=== PATIENT | male | born 1985 | race Caucasian/White ===

== ENCOUNTER 2022-06-17 20:12 | Observation (INO) ==
[2022-06-17] MEDS ORDERED: SODIUM CHLORIDE 0.9% 500 ML IV STA (20:26)
[2022-06-17 20:53] LABS: Basophils # (auto) 0.02 K/uL (0-0.2); Basophils % (auto) 0.2 %; Eosinophils # (auto) 0.08 K/uL (0-0.50); Hematocrit (blood only) 36.5 % (40.1-51.0); Hemoglobin 12.8 g/dl (14.0-18.0); Immature Granulocytes # (auto) 0.03 K/uL (0.00-0.02); Immature Granulocytes % (auto) 0.4 %; Lymphocytes # (auto) 1.48 K/uL (1.2-3.4); Lymphocytes % (auto) 17.8 %; Mean Corpuscular Hemoglobin 30.8 pg (25.0-34.0); Mean Corpuscular Hgb Conc 35.1 g/dL (32.0-36.0); Mean Corpuscular Volume 87.7 fL (80.0-100.0); Mean Platelet Volume 11.2 fL (9.4-12.4); Monocytes # (auto) 0.61 K/uL (0.24-0.82); Monocytes % (auto) 7.3 %; Neutrophils # (auto) 6.08 K/uL (1.4-6.5); Neutrophils % (auto) 73.3 %; Platelet Count 183 K/uL (130-400); RDW Standard Deviation 38.7 fL (36.4-46.3); Red Blood Count 4.16 M/uL (4.63-6.08)
[2022-06-17 21:17] LABS: Albumin Globulin Ratio 1.7 (0.9-2); Albumin Level 4.3 gm/dl (3.4-5.0); BUN Creatinine Ratio 7.9 (10-20); Bilirubin,Total 0.6 mg/dl (0.2-1.0); Calcium 9.1 mg/dl (8.5-10.1); Creatinine Clr Calc Pharmacy 76.6 ml/min; Est GFR (African American) 60.6 ml/min; Est GFR (Non-African American) 52.3 ml/min; Globulin 2.6 gm/dl (2.5-4.0); Potassium 4.2 mmol/L (3.5-5.1); Total Protein 6.9 gm/dl (6.0-8.3)
[2022-06-17] MEDS ORDERED: KETOROLAC 30 MG/ML VIAL IV STA (23:08)
[2022-06-17] MEDS ORDERED: ONDANSETRON INJ 2 MG/ML 2 ML VIAL IV STA (23:08)
[2022-06-17] MEDS ORDERED: MoRPHine SULFATE 4 MG/ML 1 ML CARP\\VIAL IV PRN (23:08)
[2022-06-17] MEDS ORDERED: cefTRIAXone SODIUM 2,000 MG/70 ML BAG IV STA (23:08)
[2022-06-17] MEDS ORDERED: SODIUM CHLORIDE 0.9% 1000ML 1,000 ML IV SCH (23:15)
--- NOTE | 2022-06-17 23:22 | Emergency Department Note ---
History of Present Illness General Chief complaint: Kidney Stone Stated complaint: FEVER, 4 MIL KIDNEY STONE, OXY AT 4:30PM PAIN IN B Time Seen by Provider: 06/17/22 23:06 History of Present Illness Maximum Pain Intensity: 3 This is a 37-year-old male presenting to the emergency department for evaluation of fever symptoms that began a few hours ago. The patient was seen and evaluated in this department yesterday for flank pain where he was diagnosed with a 4 mm distal ureteral kidney stone. The patient has been doing fairly well from a pain standpoint after being evaluated here in the ER, but with his fever elected to come to the ER. He states that his urine has been fairly clear and he is scheduled with urology tomorrow for recheck. He rates his current discomfort a 3/10. Home Medications Medication Instructions Recorded Confirmed Type acetaminophen 500 mg tablet 1,000 mg PO DIRECTED PRN Pain 06/16/22 06/17/22 History (Tylenol Extra Strength) ibuprofen 200 mg tablet 800 mg PO DIRECTED PRN Pain 06/16/22 06/17/22 History ondansetron 4 mg disintegrating 4 mg PO Q8H PRN nausea and 06/16/22 06/17/22 Rx tablet vomiting 5 days #15 tabs oxycodone 5 mg tablet 5 mg PO Q6H PRN pain #20 tabs 06/16/22 06/17/22 Rx tamsulosin 0.4 mg capsule (Flomax) 0.4 mg PO DAILY #10 caps 06/16/22 06/17/22 Rx Allergies Allergy/AdvReac Type Severity Reaction Status Date / Time No Known Allergies Allergy Verified 06/16/22 20:06 Past Med/Surg History Medical History Ureteral stone Surgical History No significant past surgical history Social History Smoking Status: Never smoker Hx Alcohol Use: Yes Alcohol type: beer and wine Hx Substance Use: Yes Last Used Substance Other:: quit smoking in 2018 Preferred Language: Jordanian Communication Ability: Effective Lap Winder Required: No Beliefs That Will Affect Care: None Current Living Situation: Spouse Other Information That Helps Us Care for You: No Feels Safe at Home: Yes Safety Concerns: Feels Safe At This Time Assistive Devices: None Review of Systems A total of 10 systems reviewed and were otherwise negative Physical Exam Vital Signs Vital Signs - 24 hr 06/17/22 20:21 06/17/22 22:33 06/17/22 23:54 Temperature 38.3 C H Temperature Source Temporal Artery Scan Pulse Rate 97 H Pulse Rate [Apical] 75 71 Pulse Rhythm [Apical] Regular Pulse Strength [Apical] Normal Respiratory Rate 20 15 18 Respiratory Effort / Characteristics Non-Labored Spontaneous Non-Labored Respiratory Depth Normal Normal Respiratory Pattern Regular Blood Pressure 189/97 H Blood Pressure [Left Arm] 143/91 H 163/92 H Blood Pressure Mean 127 Blood Pressure Mean [Left Arm] 108 115 Blood Pressure Position Sitting Blood Pressure Position [Left Arm] Sitting Pulse Oximetry 95 97 96 Oxygen Delivery Method Room Air Room Air Room Air Sepsis Recent Fever Within 48 Hours No Sepsis New/Unexplained Change in Mental Status N/A Sepsis Action Taken by Nursing No Action Required VITALS: Vitals are noted on the nurse's note and reviewed by myself. Vital signs with fever GENERAL: Well-developed, well-nourished, white male, who is in no acute distress and resting comfortably. Patient is cooperative with the examination. HEAD: Normocephalic atraumatic. HEART: Regular rate and rhythm without murmurs gallops or rubs. LUNGS: Clear to auscultation bilaterally without wheezes, rales or rhonchi. No retractions or accessory muscle use. ABDOMEN: Positive normal bowel sounds x 4. Soft, nontender, without masses or organomegaly. No guarding or rebound tenderness. No CVA tenderness. MUSCULOSKELETAL: No muscle atrophy, erythema, or edema noted. Full range of motion in all extremities. Course Administered Medications Sodium Chloride (Nss 1000ml) 1,000 mls @ 125 mls/hr IV .Q8H CATARINO Stop: 07/18/22 00:14 Last Admin: 06/18/22 01:47 Dose: 125 mls/hr Documented By: JS Discontinued Medications Sodium Chloride (Nss) 500 mls @ 999 mls/hr IV .Q31M STA Stop: 06/17/22 20:56 Last Infusion: 06/17/22 23:45 Dose: 0 mls/hr Documented By: Admin: 06/17/22 22:32 Dose: 999 mls/hr Documented By: ML Sodium Chloride (Nss 1000ml) 1,000 mls @ 999 mls/hr IV .Q1H1M CATARINO Stop: 06/18/22 00:15 Last Infusion: 06/18/22 00:50 Dose: 0 mls/hr Documented By: Admin: 06/17/22 23:48 Dose: 999 mls/hr Documented By: LRS Ceftriaxone Sodium (Rocephin) 2,000 mg in 70 mls @ 140 mls/hr IV NOW STA Stop: 06/17/22 23:37 Last Admin: 06/17/22 23:54 Dose: Not Given Documented By: LRS Piperacillin Sod/Tazobactam Sod (Zosyn) 4.5 gm in 120 mls @ 240 mls/hr IV NOW ONE Stop: 06/18/22 00:04 Last Infusion: 06/18/22 00:50 Dose: 0 mls/hr Documented By: Admin: 06/17/22 23:49 Dose: 240 mls/hr Documented By: MLS Ketorolac Tromethamine (Ketorolac 30 Mg/Ml Vial) 30 mg IV NOW STA Stop: 06/17/22 23:09 Last Admin: 06/17/22 23:49 Dose: 30 mg Documented By: MLS Ondansetron HCl (Ondansetron Inj 2 Mg/Ml 2 Ml Vial) 4 mg IV NOW STA Stop: 06/17/22 23:09 Last Admin: 06/17/22 23:49 Dose: 4 mg Documented By: LUIS Medical Decision Making Differential Diagnosis Differential diagnosis: Etiologies such as shingles, pyelonephritis/UTI, renal colic, appendicitis, diverticulitis, mesenteric ischemia, torsion, aortic pathology, infections, inflammatory bowel disease, bowel obstruction, PUD, biliary pathology, as well as others were entertained. Laboratory Data Result diagrams: 06/17/22 20:36 06/17/22 20:36 Lab Results 06/17/22 06/17/22 06/17/22 Range/Units 20:36 20:36 23:39 WBC 8.30 (4.8-10.8) K/ul RBC 4.16 L (4.63-6.08) M/uL Hgb 12.8 L (14.0-18.0) g/dl Hct 36.5 L (40.1-51.0) % MCV 87.7 (80.0-100.0) fL MCH 30.8 (25.0-34.0) pg MCHC 35.1 (32.0-36.0) g/dL RDW Std Deviation 38.7 (36.4-46.3) fL RDW Coeff of Krishna 12.0 (11.5-14.5) % Plt Count 183 (130-400) K/uL MPV 11.2 (9.4-12.4) fL Immature Gran % (Auto) 0.4 % Neut % (Auto) 73.3 % Lymph % (Auto) 17.8 % [place] % (Auto) 7.3 % Eos % (Auto) 1.0 % Baso % (Auto) 0.2 % Neut # (Auto) 6.08 (1.4-6.5) K/uL Lymph # (Auto) 1.48 (1.2-3.4) K/uL [place] # (Auto) 0.61 (0.24-0.82) K/uL Eos # (Auto) 0.08 (0-0.50) K/uL Baso # (Auto) 0.02 (0-0.2) K/uL Immature Gran # (Auto) 0.03 H (0.00-0.02) K/uL Sodium 137 (136-145) mmol/L Potassium 4.2 (3.5-5.1) mmol/L Chloride 104 (98-107) mmol/L Carbon Dioxide 28 (21-32) mmol/L Anion Gap 5 (3-11) BUN 13 (6-23) mg/dl Creatinine 1.64 H (0.6-1.4) mg/dl Est Cr Clr Drug Dosing 76.6 ml/min Est GFR ( Amer) 60.6 ml/min Est GFR (Non-Af Amer) 52.3 ml/min BUN/Creatinine Ratio 7.9 L (10-20) Glucose 94 (70-99(Fasting)) mg/dl Lactate (0.4-2.0) mmol/L Calcium 9.1 (8.5-10.1) mg/dl Total Bilirubin 0.6 (0.2-1.0) mg/dl AST 10 L (13-39) U/L ALT 11 (7-52) U/L Alkaline Phosphatase 42 (34-104) U/L Total Protein 6.9 (6.0-8.3) gm/dl Albumin 4.3 (3.4-5.0) gm/dl Globulin 2.6 (2.5-4.0) gm/dl Albumin/Globulin Ratio 1.7 (0.9-2) Urine Color Urine Appearance (Clear) Urine pH (4.5-7.5) Ur Specific [place] (1.000-1.030) Urine Protein (Negative) Urine Glucose (UA) (Negative) Urine Ketones (Negative) Urine Blood (Negative) Urine Nitrite (Negative) Urine Bilirubin (Negative) Urine Urobilinogen (Negative) Ur Leukocyte Esterase (Negative) SARS-CoV-2, RNA, NAAT NEGATIVE (NEGATIVE) 06/17/22 06/17/22 Range/Units 23:42 23:42 WBC (4.8-10.8) K/ul RBC (4.63-6.08) M/uL Hgb (14.0-18.0) g/dl Hct (40.1-51.0) % MCV (80.0-100.0) fL MCH (25.0-34.0) pg MCHC (32.0-36.0) g/dL RDW Std Deviation (36.4-46.3) fL RDW Coeff of Krishna (11.5-14.5) % Plt Count (130-400) K/uL MPV (9.4-12.4) fL Immature Gran % (Auto) % Neut % (Auto) % Lymph % (Auto) % [place] % (Auto) % Eos % (Auto) % Baso % (Auto) % Neut # (Auto) (1.4-6.5) K/uL Lymph # (Auto) (1.2-3.4) K/uL [place] # (Auto) (0.24-0.82) K/uL Eos # (Auto) (0-0.50) K/uL Baso # (Auto) (0-0.2) K/uL Immature Gran # (Auto) (0.00-0.02) K/uL Sodium (136-145) mmol/L Potassium (3.5-5.1) mmol/L Chloride (98-107) mmol/L Carbon Dioxide (21-32) mmol/L Anion Gap (3-11) BUN (6-23) mg/dl Creatinine (0.6-1.4) mg/dl Est Cr Clr Drug Dosing ml/min Est GFR ( Amer) ml/min Est GFR (Non-Af Amer) ml/min BUN/Creatinine Ratio (10-20) Glucose (70-99(Fasting)) mg/dl Lactate 0.5 (0.4-2.0) mmol/L Calcium (8.5-10.1) mg/dl Total Bilirubin (0.2-1.0) mg/dl AST (13-39) U/L ALT (7-52) U/L Alkaline Phosphatase (34-104) U/L Total Protein (6.0-8.3) gm/dl Albumin (3.4-5.0) gm/dl Globulin (2.5-4.0) gm/dl Albumin/Globulin Ratio (0.9-2) Urine Color Yellow Urine Appearance Clear (Clear) Urine pH 5.0 (4.5-7.5) Ur Specific [place] 1.006 (1.000-1.030) Urine Protein Negative (Negative) Urine Glucose (UA) Negative (Negative) Urine Ketones Negative (Negative) Urine Blood Negative (Negative) Urine Nitrite Negative (Negative) Urine Bilirubin Negative (Negative) Urine Urobilinogen Negative (Negative) Ur Leukocyte Esterase Negative (Negative) SARS-CoV-2, RNA, NAAT (NEGATIVE) MDM Narrative Physical exam and history were performed. Nursing notes, EMR, and Medication List were personally reviewed. Patient appears to have fever with acute onset in the context of having diagnosed kidney stone yesterday. IV access was established and labs were o btained. The patient was hydrated with normal saline. He was given IV Toradol, IV morphine, IV saline, and IV Zofran. He was given IV Rocephin and after discussion with Urology was given IV Zosyn. The patient's blood work is as above and was reviewed. He does not have a significantly elevated white blood cell count, gross anemia, bandemia, or significant electrolyte imbalance. Creatinine is slightly elevated from yesterday and is currently 1.64. Glucose is 94. Lactic acid is negative with cultures pending. Urine does have calcium oxalate crystals. COVID is negative. Out of concern for the patient's fever with known kidney stone I did reach out to the urology team who did evaluate the patient here in the ER. Please see their dictation for further patient course, plan, and disposition. The chart was completed utilizing [employer] Speech Voice Recognition Software. Grammatical errors, random word insertions, pronoun errors, and incomplete sentences are an occasional consequence of this system due to software limitations, ambient noise, and hardware issues. Any formal questions or concerns about the content, text, or information contained within the body of this dictation should be directly addressed to the provider for clarification. . Impression & Plan Calculus, ureteral, Fever Discharge Plan Visit Data Chief Complaint: Kidney Stone Stated Complaint: FEVER, 4 MIL KIDNEY STONE, OXY AT 4:30PM PAIN IN B ED Provider: Andrea Marques ED Midlevel Provider: Jun Pitts Discharge Problem: Calculus, ureteral, Fever Patient Disposition: Admitted As Inpatient Discharge Instructions Interventions: ED Discharge Assessment Last Done: 06/18/22 01:11
[2022-06-17] MEDS ORDERED: PIPERACILLIN/TAZOBACTAM 4.5 GM/120 ML BAG IV ONE (23:35)
[2022-06-17 23:55] LABS: Appearance Urine Clear (Clear); Bilirubin Urine Negative (Negative); Blood Urine Negative (Negative); Color Urine Yellow; Glucose Urine UA Negative (Negative); Ketones Urine Negative (Negative); Leukocyte Esterase Urine Negative (Negative); Nitrite Urine Negative (Negative); Protein Urine Negative (Negative); Specific Gravity Urine 1.006 (1.000-1.030); Urobilinogen Urine Negative (Negative)
--- NOTE | 2022-06-17 23:58 | History & Physical Report ---
Date of Service June 17, 2022 Assessment & Plan (1) Ureteral stone: Plan: Due to the imaging noted on 06/16/2022 along with the patient's fevers he will be admitted to the hospital proceeding as follows: Analgesics we provided Antiemetics will be provided We will continue Flomax 0.4 mg daily (the patient did take a dose already today) We will continue broad-spectrum antibiotics in form of Zosyn. Appropriate cultures have been sent and antibiotics to be tailored based on these culture results We will provide IV fluid for hydration I discussed the case with my attending physician Dr. Godinez. Although the patient does have a fever he is normotensive without tachycardia or leukocytosis. He also does not have evidence of UTI on urinalysis. We will therefore implement the above-noted measures to see if we can get the kidney stone to pass overnight. If the patient does, however, spiked a temperature greater than 38.5 consideration be given to taking patient for an urgent cystoscopy and possible ureteral stent. We will keep the patient n.p.o. as it is uncertain of whether or not the patient will require cystoscopy Additional recommendations be forthcoming based on his clinical course as it unfold Will use SCDs for DVT prevention no chemical means until it is ascertain whether or not patient will require any procedural intervention Patient be a level 1 full code History of Present Illness Chief Complaint: Nephrolithiasis Primary Care Provider: NO PCP This is a 37-year-old male who developed left-sided flank pain approximately 5 days ago. He said that the pain would radiate to his abdomen. He had associated nausea without vomiting. He said that the pain resolved after approximately 6 hours. He then notes approximately 4 days later that the pain recurred. With his symptoms he has had no dysuria but did report intermittent hematuria. Reported to the emergency department Secondary to his recurrent pain on 06/16/2022. During that admission he had a CBC her white blood cell count and platelet count were normal. Hemoglobin and hematocrit were noted to be 13.7 and 38.2. Chemistry profile showed sodium, potassium, and BUN within normal range. His creatinine was 1.54. (He did not have any pre-existing labs for comparison) urinalysis was not concerning for infection. He was discharged home with Flomax and analgesics. Patient represented to [facility] emergency department as he developed a fever at approximately 6:00 PM this evening. He denies any shakes or chills. The patient does note a past history of kidney stones approximate 26 years ago that passed spontaneously did not require intervention. Today in the emergency department the patient had labs again were white blood cell count and platelet count were normal. His hemoglobin and hematocrit were 12.8 and 36.5. Chemistry profile showed sodium and potassium were normal. His BUN was 13 and his creatinine was slightly elevated at 1.6. A urinalysis performed this evening was again negative for infection. A lactic acid level is pending and a COVID test is pending. Concerning past medical history the patient denies any prior medical problems other than previous kidney stones as mentioned Concerning past surgical history the patient had a hiatal hernia repair as a child and he also had a pilonidal cyst and tonsils and adenoids. Patient is a non-smoker He denies any family history of coronary artery disease Since arrival to the emergency department this evening the patient has had blood and urine cultures sent. He has received 1500 cc of normal saline solution and antibiotics in the form of Zosyn. At the time of my interview he was resting comfortably in bed in no distress. Allergies Allergy/AdvReac Type Severity Reaction Status Date / Time No Known Allergies Allergy Verified 06/16/22 20:06 Home Medications Medication Instructions Recorded Confirmed Type acetaminophen 500 mg tablet 1,000 mg PO DIRECTED PRN Pain 06/16/22 06/17/22 History (Tylenol Extra Strength) ibuprofen 200 mg tablet 800 mg PO DIRECTED PRN Pain 06/16/22 06/17/22 History ondansetron 4 mg disintegrating 4 mg PO Q8H PRN nausea and 06/16/22 06/17/22 Rx tablet vomiting 5 days #15 tabs oxycodone 5 mg tablet 5 mg PO Q6H PRN pain #20 tabs 06/16/22 06/17/22 Rx tamsulosin 0.4 mg capsule (Flomax) 0.4 mg PO DAILY #10 caps 06/16/22 06/17/22 Rx Past Med/Surg History Medical History Ureteral stone Surgical History No significant past surgical history Social History Smoking Status: Never smoker Preferred Language: Cambodian Feels Safe at Home: Yes Review of Systems Constitutional: + fever; no chills Eyes: no eye pain Ear, Nose, Mouth, Throat: no ear pain Respiratory: no cough Cardiovascular: no chest pain Gastrointestinal: + abdominal pain (Radiating from left flank) and + nausea; no vomiting Musculoskeletal: + back pain (Left flank) Integumentary: no rash Neurologic: no localized weakness Physical Exam Constitutional: WD/WN, vitals as above Eyes: no conjunctival abnormality ENMT: Ears: no hearing impairment and no external ear abnormality Mouth: no oropharynx abnormality Neck: trachea midline Respiratory: normal respiratory effort; no respiratory distress and no labored breathing Cardiovascular: Rate/Rhythm: regular rate and regular rhythm Vessels: aureliano salis pedis pulses present and radial pulses present Gastrointestinal (Abdomen): Soft, nonrigid, nondistended. There is no pain with palpation. There is no rebound tenderness or guarding Musculoskeletal: No calf tenderness Skin: no rashes Neurologic: moves all extremities Psychiatric: A+Ox3, euthymic affect Genitourinary: no CVA tenderness (No CVA tenderness noted the time of my exam) Results & Data Results & Data ([facility]) Vital Signs (Past 12 Hours) Vital Signs Temp Pulse Pulse Resp BP BP Pulse Ox 06/17/22 23:54 71 18 163/92 H 96 06/17/22 22:33 75 15 143/91 H 97 06/17/22 20:21 38.3 C H 97 H 20 189/97 H 95 O2 Del Method 06/17/22 23:54 Room Air 06/17/22 22:33 Room Air 06/17/22 20:21 Room Air PG Care Time/CCT Total # of Minutes Spent Total Time Spent with Patient: Total time spent is greater than 50% in coordination of care (as documented) at patient's floor/unit and/or counseling patient: Coding Level of Care Code 80687 Initial Inpt Care Lvl 3 Diagnoses Ureteral stone N20.1
[2022-06-18] MEDS ORDERED: ACETAMINOPHEN 1,000 MG/100 ML VIAL IV PRN (00:05)
[2022-06-18] MEDS ORDERED: MoRPHine SULFATE 4 MG/ML 1 ML CARP\\VIAL IV PRN (00:05)
[2022-06-18] MEDS ORDERED: ONDANSETRON INJ 2 MG/ML 2 ML VIAL IV PRN ×2 (00:05→10:42)
[2022-06-18] MEDS: SODIUM CHLORIDE 0.9% 1000ML 1,000 ML IV SCH ×3 (01:47→18:16)
[2022-06-18] MEDS: PIPERACILLIN/TAZOBACTAM 3.375 GM in DEXTROSE 5% 100 ML IV SCH ×3 (06:20→22:06)
[2022-06-18 06:34] LABS: Basophils # (auto) 0.04 K/uL (0-0.2); Basophils % (auto) 0.8 %; Eosinophils # (auto) 0.09 K/uL (0-0.50); Eosinophils % (auto) 1.7 %; Hematocrit (blood only) 31.3 % (40.1-51.0); Hemoglobin 11.1 g/dl (14.0-18.0); Immature Granulocytes # (auto) 0.02 K/uL (0.00-0.02); Immature Granulocytes % (auto) 0.4 %; Lymphocytes # (auto) 1.47 K/uL (1.2-3.4); Lymphocytes % (auto) 27.7 %; Mean Corpuscular Hemoglobin 31.6 pg (25.0-34.0); Mean Corpuscular Hgb Conc 35.5 g/dL (32.0-36.0); Mean Corpuscular Volume 89.2 fL (80.0-100.0); Mean Platelet Volume 11.6 fL (9.4-12.4); Monocytes # (auto) 0.47 K/uL (0.24-0.82); Monocytes % (auto) 8.9 %; Neutrophils # (auto) 3.22 K/uL (1.4-6.5); Neutrophils % (auto) 60.5 %; Platelet Count 157 K/uL (130-400); RDW Coefficient of Variation 12.1 % (11.5-14.5); RDW Standard Deviation 39.3 fL (36.4-46.3); Red Blood Count 3.51 M/uL (4.63-6.08); White Blood Count 5.31 K/ul (4.8-10.8)
[2022-06-18 07:02] LABS: Calcium 7.8 mg/dl (8.5-10.1); Creatinine Clr Calc Pharmacy 75.7 ml/min; Est GFR (African American) 59.7 ml/min; Est GFR (Non-African American) 51.5 ml/min; Potassium 4.1 mmol/L (3.5-5.1)
[2022-06-18] MEDS: TAMSULOSIN HCL 0.4 MG CAP PO SCH (08:19)
--- NOTE | 2022-06-18 08:21 | Urology Progress Note ---
Date of Service June 18, 2022 Assessment & Plan (1) Ureteral stone: (2) Hydronephrosis: (3) Acute flank pain: Plan 37yo M admitted to urology service with intractable pain, SAVAGE, and fever secondary to an obstructing 4mm left distal ureteral stone. -Afebrile (Tmax 38.3 yesterday evening) and hemodynamically stable. -Labs reviewed - No leukocytosis, creatinine 1.66. -Urine culture 06/16 prelim no growth, blood cultures pending. -Given his SAVAGE with fever and severe pain yesterday, will plan to proceed to OR today for cystoscopy, left retrograde pyelogram, left ureteral stent placement. -Risks and benefits to be reviewed with patient by Dr. Archibald. OR notified. COVID test negative. Covered with scheduled IV Zosyn. -Keep NPO. -Continue tamsulosin and prn analgesics and antiemetics. -Anticipate home later today or tomorrow pending patient status. Admission and Anticipated Discharge Date Admission Date: June 18, 2022 Subjective Patient examined at bedside this AM. Asleep on arrival, awakened. No acute distress. Denies any pain or discomfort at present. Reports pain has been well controlled since receiving pain medication in the ED. Denies any noticeable stone passage. Denies hematuria or dysuria. Denies fevers or chills. No nausea or vomiting. Has been NPO. Review of Systems Constitutional: as per Subjective / HPI Gastrointestinal: as per Subjective / HPI Genitourinary: + as per Subjective / HPI Physical Exam Constitutional: no acute distress Respiratory: no respiratory distress and no labored breathing Neurologic: awake Psychiatric: Orientation: alert and oriented x 3 Results & Data ([facility]) Vital Signs (Past 12 Hours) Vital Signs Temp Pulse Pulse Resp BP BP Pulse Ox 06/18/22 01:41 37.0 C 64 18 150/83 H 96 06/18/22 01:00 71 18 163/92 H 97 06/17/22 23:54 71 18 163/92 H 96 06/17/22 22:33 75 15 143/91 H 97 06/17/22 20:21 38.3 C H 97 H 20 189/97 H 95 O2 Del Method 06/18/22 01:41 Room Air 06/18/22 01:00 Room Air 06/17/22 23:54 Room Air 06/17/22 22:33 Room Air 06/17/22 20:21 Room Air PG Care Time/CCT Total # of Minutes Spent Total Time Spent with Patient: Total time spent is greater than 50% in coordination of care (as documented) at patient's floor/unit and/or counseling patient: Coding Level of Care Code 91172 Subseq Hosp Care Lvl 2 Diagnoses Ureteral stone N20.1 Hydronephrosis N13.30 Acute flank pain R10.9
--- NOTE | 2022-06-18 10:24 | Anesthesiology Consultation ---
Date of Service June 18, 2022 Assessment & Plan (1) Encounter for pre-operative examination: Chart Review Chart Review: Acceptable Risk for Surgery History Surgery Operation Date: 06/18/22 12:00 Proposed Procedures p Cystoscopy Left Retrograde Pyelogram with Stent Placement - Sushant Archibald MD Height/Weight Height: 6 ft 1 in Weight: 101.8 kg Allergies Allergy/AdvReac Type Severity Reaction Status Date / Time No Known Allergies Allergy Verified 06/16/22 20:06 Medications Home Medications Medication Instructions Recorded Confirmed Last Taken acetaminophen 500 mg tablet 1,000 mg PO DIRECTED PRN Pain 06/16/22 06/17/22 Unknown (Tylenol Extra Strength) ibuprofen 200 mg tablet 800 mg PO DIRECTED PRN Pain 06/16/22 06/17/22 Unknown ondansetron 4 mg disintegrating 4 mg PO Q8H PRN nausea and 06/16/22 06/17/22 Unknown tablet vomiting 5 days #15 tabs oxycodone 5 mg tablet 5 mg PO Q6H PRN pain #20 tabs 06/16/22 06/17/22 Unknown tamsulosin 0.4 mg capsule (Flomax) 0.4 mg PO DAILY #10 caps 06/16/22 06/17/22 Unknown Active Medications Generic Name Dose Route Start Last Admin Trade Name Freq PRN Reason Stop Dose Admin Sodium Chloride 1,000 mls @ 125 mls/hr 06/18/22 00:15 06/18/22 09:32 Nss 1000ml IV 07/18/22 00:14 125 mls/hr .Q8H CATARINO Administration Piperacillin Sod/Tazobactam 115 mls @ 28.75 mls/hr 06/18/22 06:00 06/18/22 09:57 Sod 3.375 gm/ Dextrose IV 06/28/22 05:59 Infused Q8H CATARINO Infusion Protocol Tamsulosin HCl 0.4 mg 06/18/22 09:00 06/18/22 08:19 Tamsulosin Hcl 0.4 Mg Cap PO 07/18/22 08:59 0.4 mg DAILY CATARINO Administration Past Medical History Medical History Ureteral stone Past Surgical History Surgical History No significant past surgical history Social History Smoking Status: Never smoker Hx Alcohol Use: Yes Alcohol type: beer and wine alcohol intake frequency: a few times a week Hx Substance Use: Yes substance use type: former substance user and marijuana Last Used Substance Other:: quit smoking in 2018 Physical Exam Vital Signs Last Vital Signs Temp 36.9 C 06/18/22 08:34 Pulse 82 06/18/22 08:34 Resp 18 06/18/22 08:34 BP 133/82 06/18/22 08:34 Pulse Ox 97 06/18/22 08:34 O2 Del Method 06/18/22 08:34 Testing Laboratory Results 06/18/22 05:41 06/18/22 05:41 Urine Color Yellow 06/17/22 23:42 Urine Appearance Clear (Clear) 06/17/22 23:42 Urine pH 5.0 (4.5-7.5) 06/17/22 23:42 Ur Specific [place] 1.006 (1.000-1.030) 06/17/22 23:42 Urine Protein Negative (Negative) 06/17/22 23:42 Urine Glucose (UA) Negative (Negative) 06/17/22 23:42 Urine Ketones Negative (Negative) 06/17/22 23:42 Urine Nitrite Negative (Negative) 06/17/22 23:42 Ur Leukocyte Esterase Negative (Negative) 06/17/22 23:42
[2022-06-18] MEDS ORDERED: ATROPINE SULFATE 0.1 MG/ML 10ML SYR IV PRN (10:42)
[2022-06-18] MEDS ORDERED: fentaNYL citrate 100 MCG/2 ML VIAL IV PRN (10:42)
[2022-06-18] MEDS ORDERED: MIDAZOLAM HCL 1 MG/ML 2ML VIAL ONE (15:51)
[2022-06-18] MEDS ORDERED: PROPOFOL IV EMULSION 10 MG/ML 20 ML VIAL IV ONE ×2 (15:52→16:03)
[2022-06-18] MEDS ORDERED: fentaNYL citrate 100 MCG/2 ML VIAL ONE (15:52)
[2022-06-18] MEDS ORDERED: LIDOCAINE 2% 20 MG/ML 5 ML SYR IV ONE (15:54)
[2022-06-18] MEDS ORDERED: DIATRIZOATE MEGLUMINE 30% 100ML VIAL INSTIL PRN (16:34)
[2022-06-18] MEDS ORDERED: ONDANSETRON INJ 2 MG/ML 2 ML VIAL ONE (17:02)
--- NOTE | 2022-06-18 17:23 | Operative Report ---
PG Post Operative Report Pre & Post Diagnosis Operation Date: 06/18/22 12:00 Pre-Op Diagnosis: Urethral stricture, Left ureteral stone Post-Op Diagnosis: Urethral stricture, Left ureteral stone I identified the patient and participated in the time-out.: Yes Procedure Operation Date: 06/18/22 12:00 Actual Procedures p Urethral Dilation, Cystoscopy, Left Retrograde Pyelogram with Stent Placement(Left) - Sushant Archibald MD Surgeon Sushant Archibald MD Project Reservoir Engineer none Estimated Blood Loss 0 Findings Consistent with Post-Op Diagnosis Specimens none Description of Procedure The patient was identified in the preoperative holding area, appropriate informed consents were reviewed and completed and the patient was transferred to the operative suite. Upon arrival, appropriate antibiotics and anesthesia were administered and the patient was placed in dorsal lithotomy position and prepped and draped in sterile fashion. To begin the case I attempted to pass a cystoscope but his meatus was naturally narrowed and would not accommodate the scope. I performed urethral dilation utilizing male urethral sounds. After dilating a 24 [place] I was able to navigate a 22 [place] cystoscope through the meatus and distal urethra. The remainder of the urethra was unremarkable without any stricture disease. His prostate is small in size as is appropriate for age. His bladder was unremarkable although he did have a small amount of erythema surrounding the left UO consistent with a passing stone. There were no stones visualized within the bladder. I then turned my attention to the left UO. I utilized a wire and 5 [place] open-ended catheter to cannulate the most distal aspect of the left ureter. I performed a retrograde pyelogram Retrograde pyelogram: Mild dilation uniformly throughout the ureter without a clear filling defect identified. Interestingly, immediately after completing the retrograde pyelogram he had a discharge of purulent/bloody old urine from the kidney consistent with relief of his obstruction He then continued to drain after I placed a wire into the upper pole of the kidney. I proceeded to place a 6 [place]ian by 26 cm double-J stent seeing a good curl in the kidney as well as the bladder. There was urine draining through and around the stent throughout. There was some material that led to suspicion that he may have a passed the stone in the midst of this stent placement, however, I inspected the material after irrigating out of the bladder and seem to mostly be small blood clots and not firm stone. I attest to the content of the Intraoperative Record and any orders documented therein. Any exceptions are noted below.
--- NOTE | 2022-06-18 17:29 | Anesthesiology Progress Note ---
Date of Service June 18, 2022 Anesthesia Post Procedure Vital Signs Vital Signs: Temp Pulse Pulse Resp BP BP Pulse Ox 06/18/22 15:40 98.2 F 69 18 135/91 98 06/18/22 14:55 98.6 F 65 18 118/75 97 06/18/22 10:39 98.4 F 78 20 160/90 H 100 06/18/22 08:34 98.4 F 82 18 133/82 97 06/18/22 01:41 98.6 F 64 18 150/83 H 96 06/18/22 01:00 71 18 163/92 H 97 06/17/22 23:54 71 18 163/92 H 96 06/17/22 22:33 75 15 143/91 H 97 06/17/22 20:21 100.9 F H 97 H 20 189/97 H 95 O2 Del Method 06/18/22 15:40 Room Air 06/18/22 14:55 Room Air 06/18/22 10:39 Room Air 06/18/22 08:34 Room Air 06/18/22 01:41 Room Air 06/18/22 01:00 Room Air 06/17/22 23:54 Room Air 06/17/22 22:33 Room Air 06/17/22 20:21 Room Air Pain Intensity Flank: Pain Intensity: 3 Transfer of Care Handoff Completed per policy Notes Mental Status: alert / awake / arousable and participated in evaluation Patient Amnestic to Procedure: Yes Nausea / Vomiting: adequately controlled Pain: adequately controlled Airway Patency, RR, SpO2: stable & adequate BP & HR: stable & adequate Hydration State: stable & adequate Anesthetic Complications: no major complications apparent and Pt Satisfied with anesthetic care
--- NOTE | 2022-06-18 17:39 | Fluoroscopy Report ---
FL KUB HISTORY: 37 years-old Male LEFT CYSTO STENT left-sided cystourethrogram COMPARISON: CT 06/16/2022 TECHNIQUE: 3 spot fluoroscopic images of the abdomen were obtained utilizing 7.8 seconds fluoroscopy time FINDINGS: A left-sided ureteroscope is noted. There is cannulation of the left ureter with retrograde injection of contrast. Persistent hydroureteronephrosis. Subsequent images demonstrate placement of a stent, p roximal portion appearing to be in satisfactory positioning. The distal portion of the stent was not imaged. IMPRESSION: Fluoroscopic assistance as above. ACT 112: Negative or not required by law. The above report was generated using voice recognition software. It may contain grammatical, syntax o r spelling errors. Electronically signed by: Selvin Garcia M.D. 06/18/2022 5:37 PM
[2022-06-19] MEDS: SODIUM CHLORIDE 0.9% 1000ML 1,000 ML IV SCH (02:04)
[2022-06-19] MEDS: PIPERACILLIN/TAZOBACTAM 3.375 GM in DEXTROSE 5% 100 ML IV SCH (06:08)
[2022-06-19] MEDS: TAMSULOSIN HCL 0.4 MG CAP PO SCH (07:59)
[2022-06-19 08:28] LABS: Basophils # (auto) 0.03 K/uL (0-0.2); Basophils % (auto) 0.7 %; Eosinophils # (auto) 0.11 K/uL (0-0.50); Eosinophils % (auto) 2.6 %; Hematocrit (blood only) 34.9 % (40.1-51.0); Hemoglobin 11.9 g/dl (14.0-18.0); Immature Granulocytes # (auto) 0.01 K/uL (0.00-0.02); Immature Granulocytes % (auto) 0.2 %; Lymphocytes # (auto) 1.31 K/uL (1.2-3.4); Lymphocytes % (auto) 30.6 %; Mean Corpuscular Hemoglobin 30.5 pg (25.0-34.0); Mean Corpuscular Hgb Conc 34.1 g/dL (32.0-36.0); Mean Corpuscular Volume 89.5 fL (80.0-100.0); Mean Platelet Volume 11.1 fL (9.4-12.4); Monocytes # (auto) 0.28 K/uL (0.24-0.82); Monocytes % (auto) 6.5 %; Neutrophils # (auto) 2.54 K/uL (1.4-6.5); Neutrophils % (auto) 59.4 %; Platelet Count 188 K/uL (130-400); RDW Coefficient of Variation 12.1 % (11.5-14.5); RDW Standard Deviation 39.5 fL (36.4-46.3); White Blood Count 4.28 K/ul (4.8-10.8)
[2022-06-19 08:56] LABS: BUN Creatinine Ratio 7.4 (10-20); Calcium 8.5 mg/dl (8.5-10.1); Creatinine Clr Calc Pharmacy 103.8 ml/min; Est GFR (African American) 87.5 ml/min; Est GFR (Non-African American) 75.5 ml/min
--- NOTE | 2022-06-19 09:36 | Urology Progress Note ---
Date of Service June 19, 2022 Assessment & Plan (1) Calculus, ureteral: Plan Postop day #1 status post left ureteral stent placement This was a very small distal stone and there is a chance that he has already passed the stone or will pass fragments despite having the stent in place He is stable for discharge home Will cover with several days of antibiotics given his fevers when he arrived Plan for outpatient evaluation of the ureter next week and hopefully removal of the stent Admission and Anticipated Discharge Date Admission Date: June 18, 2022 Subjective No major issues overnight Wonder if he may have passed the stone but was uncertain and did not evaluate it closely Physical Exam Constitutional: well developed and well nourished Respiratory: no respiratory distress Cardiovascular: Extremities: no pedal edema Gastrointestinal (Abdomen): Inspection/Auscultation: abdomen normal to inspection Results & Data ([facility]) Vital Signs (Past 12 Hours) Vital Signs Temp Pulse Resp BP BP Pulse Ox O2 Del Method 06/19/22 07:40 36.7 C 60 15 122/78 98 Room Air 06/19/22 03:57 36.8 C 68 17 119/73 97 Room Air 06/19/22 00:04 37.1 C 65 19 147/88 H 97 Room Air PG Care Time/CCT Total # of Minutes Spent Total Time Spent with Patient: Total time spent is greater than 50% in coordination of care (as documented) at patient's floor/unit and/or counseling patient: Coding Level of Care Code 77493 Subseq Hosp Care Lvl 2 Diagnoses Calculus, ureteral N20.1
--- NOTE | 2022-06-19 13:19 | Discharge Summary ---
Date of Service June 19, 2022 Admission HPI Per Admitting Provider This is a 37-year-old male who developed left-sided flank pain approximately 5 days ago. He said that the pain would radiate to his abdomen. He had associated nausea without vomiting. He said that the pain resolved after approximately 6 hours. He then notes approximately 4 days later that the pain recurred. With his symptoms he has had no dysuria but did report intermittent hematuria. Reported to the emergency department Secondary to his recurrent pain on 06/16/2022. During that admission he had a CBC her white blood cell count and platelet count were normal. Hemoglobin and hematocrit were noted to b e 13.7 and 38.2. Chemistry profile showed sodium, potassium, and BUN within normal range. His creatinine was 1.54. (He did not have any pre-existing labs for comparison) urinalysis was not concerning for infection. He was discharged home with Flomax and analgesics. Patient represented to [facility] emergency department as he developed a fever at approximately 6:00 PM this evening. He denies any shakes or chills. The patient does note a past history of kidney stones approximate 26 years ago that passed spontaneously did not require intervention. Today in the emergency department the patient had labs again were white blood cell count and platelet count were normal. His hemoglobin and hematocrit were 12.8 and 36.5. Chemistry profile showed sodium and potassium were normal. His BUN was 13 and his creatinine was slightly elevated at 1.6. A urinalysis performed this evening was again negative for infection. A lactic acid level is pending and a COVID test is pending. Concerning past medical history the patient denies any prior medical problems other than previous kidney stones as mentioned Concerning past surgical history the patient had a hiatal hernia repair as a child and he also had a pilonidal cyst and tonsils and adenoids. Patient is a non-smoker He denies any family history of coronary artery disease Since arrival to the emergency department this evening the patient has had blood and urine cultures sent. He has received 1500 cc of normal saline solution and antibiotics in the form of Zosyn. At the time of my interview he was resting comfortably in bed in no distress. Admission Exam Per Admitting Provider Constitutional: WD/WN, vitals as above Eyes: no conjunctival abnormality ENMT: Ears: no hearing impairment and no external ear abnormality Mouth: no oropharynx abnormality Neck: trachea midline Respiratory: normal respiratory effort; no respiratory distress and no labored breathing Cardiovascular: Rate/Rhythm: regular rate and regular rhythm Vessels: dorsalis pedis pulses present and radial pulses present Gastrointestinal (Abdomen): Soft, nonrigid, nondistended. There is no pain with palpation. There is no rebound tenderness or guarding Musculoskeletal: No calf tenderness Skin: no rashes Neurologic: moves all extremities Psychiatric: A+Ox3, euthymic affect Genitourinary: no CVA tenderness (No CVA tenderness noted the time of my exam) Principal Diagnosis Urethral stricture, Left ureteral stone Discharge Exam Constitutional: well developed and well nourished Respiratory: no respiratory distress Cardiovascular: Extremities: no pedal edema Gastrointestinal (Abdomen): Inspection/Auscultation: abdomen normal to inspection Discharge Data Allergies Allergy/AdvReac Type Severity Reaction Status Date / Time No Known Allergies Allergy Verified 06/16/22 20:06 Consultations 06/17/22 23:16 Consult Urology Stat Procedures Performed Operation Date: 06/18/22 12:00 Actual Procedures p Ureteral Dilation, Cystoscopy Left Retrograde Pyelogram with Stent Placement(Left) - Sushant Archibald MD Ordered Studies 06/18/22 FL KUB Routine Hospital Course (1) Calculus, ureteral: (2) Hydronephrosis: (3) Acute flank pain: Plan 37yo M who was admitted to urology service on 06/17/22 with intractable pain, SAVAGE, and fever secondary to an obstructing 4mm left distal ureteral stone. He was started on broad-spectrum antibiotics in the form of Zosyn. Urine and blood cultures were obtained. He was made NPO status and underwent Urethral Dilation, Cystoscopy, Left Retrograde Pyelogram with Stent Placement on 06/[address] Archibald. Patient tolerated procedure well. No acute issues postoperatively. He remained afebrile and hemodynamically stable. Postop day #1 labs revealed a white count of 4.28, hemoglobin 11.9, and creatinine 1.21. He reported minimal pain. Tolerated diet, no nausea or vomiting. Voided without issue. He was stable for discharge on postop day #1. Urine culture finalized negative. Blood cultures preliminary no growth [id number]. He was discharged home on ciprofloxacin 500 mg twice daily for 5 days given his fevers on arrival. He was also discharged home with tamsulosin and prn Pyridium for stent discomfort. Plan is for outpatient evaluation of the ureter next week and hopefully removal of the stent with Dr. Archibald. Discharge instructions reviewed. Patient agreeable to plan, questions were answered. Total Time Total Time Spent Total Time Spent (In Minutes): 15 Discharge Plan Discharge Items Patient Disposition: Home - Self-Care Reason For Visit: Left ureteral stone Discharge Diagnosis: Left ureteral stone Condition on Discharge: Good Activity: Per Instructions section Driving/Machine Use: Do not drive if taking prescription pain medication. Non-emergency contact: Surgeon and Urologist Call non-emergency contact if: you have any medication questions, your pain is not controlled, your pain is worsening, you have a fever and your temperature is above 101 Follow-up/Referrals: Sushant Archibald MD [Physician] - (Office will call patient with appointment date and time ) PCPARLET [Primary Care Provider] - Diet: Regular Addtl Attending Provider Instructions: Please take all medications as prescribed and keep all follow-ups as scheduled. Please call the urology office at [phone] with any questions, concerns or need to reschedule appointments for any reason. We are happy to assist you. An antibiotic was sent to your pharmacy (Ciprofloxacin 500mg twice daily for 5 days). Please take as prescribed. You may continue Tamsulosin 0.4mg daily and Pyridium as needed for stent discomfort. The urology office will contact you to arrange a follow-up visit. While you have a ureteral stent in place: Some discomfort is normal. Certain movements may trigger pain or a feeling that you need to urinate. You may also feel mild soreness or pressure before or during urination. These symptoms should go away a few days after the stent is removed. Your urine may be slightly pink or red. This is due to bleeding caused by minor irritation from the stent. This may happen on and off while you have the stent, it is not harmful and is to be expected. Medication to help minimize discomfort or bladder spasms, or to prevent infection may be prescribed. Take this as directed. Drink plenty of fluids to help flush out your urinary tract. When to call [facility] [place] Urology at [phone]: Your urine contains heavy blood clots or you are unable to urinate. You are constantly leaking urine Fever of 101F or higher, chills, nausea, or vomiting Your pain is not relieved with medication The end of the stent comes out of your urethra Pending Studies at Discharge: No Stand-Alone Forms: [facility], Smoking Cessation Medications and DC Order Prescriptions: New ciprofloxacin HCl 500 mg tablet 500 mg PO BID 5 Days Qty: 10 0RF phenazopyridine [Pyridium] 100 mg tablet 100 mg PO Q12H PRN (Reason: pain) Qty: 6 0RF Continued acetaminophen [Tylenol Extra Strength] 500 mg Tablet 1,000 mg PO DIRECTED PRN (Reason: Pain) ibuprofen 200 mg Tablet 800 mg PO DIRECTED PRN (Reason: Pain) ondansetron 4 mg tablet,disintegrating 4 mg PO Q8H PRN (Reason: nausea and vomiting) 5 Days Qty: 15 0RF oxycodone 5 mg tablet 5 mg PO Q6H PRN (Reason: pain) Qty: 20 0RF tamsulosin [Flomax] 0.4 mg capsule 0.4 mg PO DAILY Qty: 20 0RF Discharge Orders: Discharge Order (Routine); Ordered 06/19/22 Ordered By: Liana Machado Admission Data Admit Date/Time: 06/18/22 00:09 Attending Provider: Eliezer Godinez Admit Provider: Rene Robert Primary Care Provider: PCP,NO Other Providers: Eliezer Godinez Other Interventions: Discharge Summary Assessment (RN) Last Done: 06/19/22 10:44 Coding Level of Care Code D/C DAY MANAGEMENT <30 MINS Diagnoses Calculus, ureteral N20.1 Hydronephrosis N13.30 Acute flank pain R10.9
== END 2022-06-19 11:33 | disposition home or self-care (01) ==
LOC: ED 20:12 → INTOOBSV 06-18 00:09 → 3N 06-18 00:09